=== PATIENT | female | born 2000 | race African-American/Black ===

== ENCOUNTER 2023-02-04 06:53 | Emergency (ER) | payer MEDICAID ==
[~2023-02-04] VITALS: Ht 170.2 cm; Wt 82.0 kg
[2023-02-04 06:55] VITALS: O2SAT 98
[2023-02-04 07:51] LABS: BASOPHILS % 0.3 % (0.0-2.0); DIFFERENTIAL COMMENT 0; EOSINOPHILS % 1.7 % (0.0-5.0); HEMATOCRIT. 38.6 % (36.0-48.0); LYMPHOCYTES % 13.8 % (20.0-50.0); MEAN CORPUSCULAR HEMOGLOBIN 22.8 pg (28.0-32.0); MEAN CORPUSCULAR HGB CONC 31.1 g/dL (31.0-37.0); MEAN CORPUSCULAR VOLUME 73.4 fL (81.0-99.0); MEAN PLATELET VOLUME 8.6 fl (7.4-10.4); NEUTROPHILS % 78.2 % (40.0-76.0); PLATELET 251 x1000/uL (130-400); RED BLOOD CELL COUNT 5.26 mill/uL (4.2-5.4); RED CELL DISTRIBUTION WIDTH 17.1 % (11.6-14.6); WHITE BLOOD COUNT 11.1 x1000/uL (4.5-11.0)
[2023-02-04 07:59] LABS: INR 1.1; PROTHROMBIN TIME 11.4 sec (9.6-11.0)
[2023-02-04 08:05] LABS: ALANINE AMINOTRANSFERASE 9 IU/L (10-49); ALBUMIN 4.1 g/dL (3.2-4.8); ASPARTATE AMINOTRANSFERASE 15 IU/L (<34); BILIRUBIN TOTAL 1.1 mg/dL (0.1-1.0); CALCIUM 8.9 mg/dL (8.7-10.4); CARBON DIOXIDE 25 mEq/L (21-32); CHLORIDE 107 mEq/L (98-107); CREATININE 0.7 mg/dL (0.6-1.0); GLUCOSE 103 mg/dL (70-105); POTASSIUM 3.5 mEq/L (3.5-5.1); PROTEIN TOTAL 6.8 g/dL (6.0-8.3); SODIUM 140 mEq/L (136-145); UREA NITROGEN BLOOD 8 mg/dL (9-23)
[2023-02-04 08:06] LABS: HCG SCREEN NEGATIVE
[2023-02-04] MEDS ORDERED: KETOROLAC 30MG/ML VIAL IV ONE (09:15)
[2023-02-04] MEDS ORDERED: TOPUD PO (11:23)
[2023-02-04 12:31] VITALS: BP 126/84; PULSE 80; RESP 16; TEMP 98
== END 2023-02-04 12:31 | disposition home or self-care (01) ==
LOC: ER 06:53
DX: R10.31 Right lower quadrant pain (principal)
CPT/HCPCS: 80053; 84703; 83690; 85025; 85610; 36415; 76830; 76856; 96374; 99285; J1885; Z7610 ×2

== ENCOUNTER 2023-08-16 02:15 | Emergency (ER) | payer MEDICAID ==
[~2023-08-16] VITALS: Ht 167.6 cm; Wt 109.0 kg
[~2023-08-16 02:15] MED LIST: TOPUD PO
[2023-08-16 02:30] VITALS: TEMP 98
[2023-08-16 02:54] VITALS: O2SAT 95
[2023-08-16] MEDS: MIDAZOLAM HCL 2 MG/2 ML VIAL IV ONE (02:54)
[2023-08-16] MEDS: KETOROLAC 30MG/ML VIAL IV ONE (02:54)
[2023-08-16] MEDS: ONDANSETRON HCL 4MG/2ML INJ IV ONE (02:55)
[2023-08-16 02:58] VITALS: BP 141/74; PULSE 109; RESP 20
[2023-08-16] MEDS ORDERED: HYDR-4001 MT (03:42)
[2023-08-16] MEDS ORDERED: IBUP-2029 MT (03:42)
== END 2023-08-16 03:55 | disposition home or self-care (01) ==
LOC: ER 02:15
DX: S43.102A Unspecified dislocation of left acromioclavicular joint, initial encounter (principal); M25.512 Pain in left shoulder; F41.9 Anxiety disorder, unspecified; W01.0XXA Fall on same level from slipping, tripping and stumbling without subsequent striking against object, initial encounter; Y93.89 Activity, other specified; Y92.89 Other specified places as the place of occurrence of the external cause; Y99.8 Other external cause status
CPT/HCPCS: 73030; 73060; 96374; 96375; 99284; J1885; J2250; J2405; Z7610; A4565

== ENCOUNTER 2024-12-27 12:51 | Emergency (ER) | payer MEDICAID ==
[~2024-12-27] VITALS: Ht 177.8 cm; Wt 78.0 kg
[~2024-12-27 12:51] MED LIST changes: +HYDR-4001 MT; +IBUP-1455 MT
[2024-12-27 12:54] VITALS: O2SAT 99
[2024-12-27] MEDS: KETOROLAC 30MG/ML VIAL IV ONE (13:40)
[2024-12-27] MEDS: METHOCARBAMOL 500MG TABLET PO ONE (13:40)
[2024-12-27] MEDS: DICYCLOMINE HCL 10MG/ML 2ML VIAL IM STA (13:51)
[2024-12-27] MEDS: SODIUM CHLORIDE 0.9% 1,000 ML IV ONE (13:51)
[2024-12-27 14:06] LABS: CREATININE 0.7 mg/dL (0.6-1.0); UREA NITROGEN BLOOD 5 mg/dL (9-23)
[2024-12-27 14:08] LABS: ASPARTATE AMINOTRANSFERASE 20 IU/L (<34); BILIRUBIN DIRECT 0.4 mg/dL (<=3.0); BILIRUBIN TOTAL 1.3 mg/dL (0.1-1.0); PROTEIN TOTAL 8.1 g/dL (6.0-8.3)
[2024-12-27 14:11] LABS: CLARITY URINE CLOUDY (CLEAR); COLOR URINE DARK YELLOW (YELLOW); GLUCOSE URINE NEGATIVE (NEGATIVE); KETONES URINE 4+ (NEGATIVE); LEUKOCYTE ESTERASE URINE NEGATIVE (NEGATIVE); NITRITE URINE NEGATIVE (NEGATIVE); OCCULT BLOOD URINE NEGATIVE (NEGATIVE); PH URINE 6.0 (4.5-8.0); PROTEIN URINE 1+ (NEGATIVE); SPECIFIC GRAVITY URINE 1.027 (1.005-1.030); UROBILINOGEN URINE 1.0 E.U./dL (0.2-1.0)
[2024-12-27 14:28] LABS: HCG SCREEN NEGATIVE
[2024-12-27 14:52] LABS: BASOPHILS % 0.3 % (0.0-2.0); EOSINOPHILS % 0.0 % (0.0-5.0); HEMATOCRIT. 39.8 % (36.0-48.0); HEMOGLOBIN. 12.4 g/dL (12.0-16.0); LYMPHOCYTES % 7.7 % (20.0-50.0); MEAN PLATELET VOLUME 9.3 fl (7.4-10.4); MONOCYTES % 3.2 % (2.0-8.0); NEUTROPHILS % 88.8 % (40.0-76.0); PLATELET 283 x1000/uL (130-400); RED BLOOD CELL COUNT 5.44 mill/uL (4.2-5.4); RED CELL DISTRIBUTION WIDTH 16.4 % (11.6-14.6)
[2024-12-27 15:01] LABS: BACTERIA URINE NONE SEEN; RBC URINE 0-2 /hpf (0-2); SQUAMOUS EPITHELIAL CELL URINE RARE /lpf (RARE/1+); WBC URINE 0-2 /hpf (0-2)
[2024-12-27] MEDS: HYDROCODONE/ACETAMINOPHEN 5/325MG TABLET PO ONE (15:49)
[2024-12-27] MEDS ORDERED: ONDANSETRON HCL 4MG/2ML INJ IV ONE (16:45)
[2024-12-27] MEDS ORDERED: FAMOTIDINE 20MG/2ML VIAL IV ONE (16:45)
[2024-12-27] MEDS: FAMOTIDINE 20MG/2ML VIAL IV SCH (18:54)
[2024-12-27] MEDS: ONDANSETRON HCL 4MG/2ML INJ IV SCH (18:54)
[2024-12-27] MEDS ORDERED: IBUP-2030 MT (20:02)
[2024-12-27] MEDS ORDERED: ONDA-241 MT (20:14)
[2024-12-27 20:30] VITALS: TEMP 36.7; O2SAT 99
[2024-12-27 20:42] VITALS: BP 124/83; PULSE 105; RESP 18
[2024-12-27] MEDS: OXYCODONE HCL/ACETAMINOPHEN 5/325MG TABLET PO ONE (20:42)
== END 2024-12-27 20:45 | disposition home or self-care (01) ==
LOC: ER 12:51
DX: N94.6 Dysmenorrhea, unspecified (principal)
CPT/HCPCS: 80076; 80048; 81003; 80320; 84703; 83690; 85025; 36415; 76830; 76856; 96361; 96372; 96374; 96375; 99285; J0500; J1308; J1885; J2405; J7030; G0480